=== PATIENT | female | born 1990 | race Caucasian/White ===

== ENCOUNTER 2020-10-23 13:05 | Emergency (ER) | payer OTHER ==
[2020-10-23] MEDS ORDERED: NA CHLORIDE 0.9% 1,000 ML ONE (15:14)
[2020-10-23 15:23] LABS: Basophils % 0.7 % (0-1.3); Hematocrit 42.7 % (36.0-45.0); Lymphocytes % 20.4 % (15.3-44.8); MPV 10.3 fL (7.6-11.3)
[2020-10-23 15:38] LABS: ALT/SGPT 19 U/L (12-78); AST/SGOT 10 U/L (15-37); Albumin 4.2 g/dL (3.4-5.0); Alkaline Phosphatase 48 U/L (45-117); BUN Blood Urea Nitrogen 10 mg/dL (7-18); Bicarbonate 27 mmol/L (21-32); Bilirubin Direct 0.2 mg/dL (0-0.2); Bilirubin Total 0.8 mg/dL (0.2-1.0); Glucose Level 91 mg/dL (74-106); Magnesium 2.2 mg/dL (1.8-2.4); Potassium 3.7 mmol/L (3.5-5.1); Protein, Total 7.5 g/dL (6.4-8.2); Sodium Level 141 mmol/L (136-145); Troponin (Emerg Dept Use Only) < 0.02 ng/mL (0.0-0.045)
--- NOTE | 2020-10-23 15:51 | ER ---
Nurse's Notes [facility] Name: Crista Sandra Age: 30 yrs Sex: Female : 1990 Arrival Date: 10/23/2020 Time: 13:10 Bed 15 Private MD: Diagnosis: Weakness;Syncope and collapse-Near Presentation: 10/23 13:40 Chief complaint: Patient states: I have anxiety. I started having chest pains last ca1 night, it usually happens after a busy shift. But it did not really subsided today, and now am having headaches, nausea, tingling on my arms and legs, feeling weak. Coronavirus screen: Client denies travel out of the [place] in the last 14 days. nausea, Client presents with at least one sign or symptom that may indicate coronavirus-19. Standard/surgical mask placed on the client. Provider contacted for isolation considerations. Ebola Screen: Patient negative for fever greater than or equal to 101.5 degrees Fahrenheit, and additional compatible Ebola Virus Disease symptoms Patient denies exposure to infectious person. Patient denies travel to an Ebola-affected area in the 21 days before illness onset. No symptoms or risks identified at this time. Initial Sepsis Screen: Does the patient meet any 2 criteria? No. Patient's initial sepsis screen is negative. Does the patient have a suspected source of infection? No. Patient's initial sepsis screen is negative. Risk Assessment: Do you want to hurt yourself or someone else? Patient reports no desire to harm self or others. Onset of symptoms was October 22, 2020. 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 - Social history:: Smoking status: Patient denies any tobacco usage or history of. - Family history:: not pertinent. Screenin:08 Abuse screen: Denies threats or abuse. Denies injuries from another. Nutritional zb screening: No deficits noted. Tuberculosis screening: No symptoms or risk factors identified. Fall Risk None identified. Assessment: 14:30 General: Appears in no apparent distress. uncomfortable, Behavior is calm, cooperative, zb appropriate for age, Reports feeling ill for 1-2 days, fatigue for 1-2 days. Pain: Complains of pain in chest Pain does not radiate. Pain currently is 5 out of 10 on a pain scale. Quality of pain is described as aching, Pain began 1 day ago. Is continuous. Neuro: Level of Consciousness is awake, alert, obeys commands, Oriented to person, place, time, situation. Neuro: Reports weakness since 1 days tingling of extremities . Cardiovascular: Heart tones S1 S2 present Capillary refill < 3 seconds in bilateral fingers Patient's skin is warm and dry. Pulses are all present. Rhythm is regular. Respiratory: Airway is patent Respiratory effort is even, unlabored, Respiratory pattern is regular, symmetrical. GI: Abdomen is flat. : No deficits noted. EENT: No deficits noted. Derm: Skin is intact, is healthy with good turgor, Skin is dry, Skin is normal. Musculoskeletal: Range of motion: intact in all extremities. 16:00 Reassessment: Patient is alert, oriented x 3, equal unlabored respirations, skin aa5 warm/dry/pink. Vital Signs: 13:40 BP 121 / 84; Pulse 84; Resp 16 S; Temp 97.7(TE); Pulse Ox 99% on R/A; Weight 65.77 kg ca1 (R); Height 5 ft. 4 in. (162.56 cm) (R); Pain 7/10; 14:00 BP 108 / 77; Pulse 66; Resp 16; Pulse Ox 100% on R/A; zb 15:00 BP 108 / 75; Pulse 72; Resp 16; Pulse Ox 100% on R/A; zb 13:40 Body Mass Index 24.89 (65.77 kg, 162.56 cm) ca1 ED Course: 13:10 Patient arrived in ED. as 13:42 Triage completed. ca1 13:44 Arm band placed on right wrist. ca1 13:53 Lazarus Hickey MD is Attending Physician. estelle 14:04 My Robbins RN is Primary Nurse. zb 15:08 Patient has correct armband on for positive identification. Placed in gown. Bed in low zb position. Call light in reach. Side rails up X 1. primary care provider on. Pulse ox on. NIBP on. Door closed. Noise minimized. Warm blanket given. 15:08 Inserted saline lock: 20 gauge in right antecubital area, using aseptic technique. zb Blood collected. Patient maintains SpO2 saturation greater than 95% on room air. 15:51 Karlos oWod MD is Referral Physician. [facility] 16:00 No provider procedures requiring assistance completed. IV discontinued, intact, aa5 bleeding controlled, No redness/swelling at site. Pressure dressing applied. 17:11 XRAY Chest (1 view) In Process Unspecified. EDMS Administered Medications: 15:03 Drug: NS 0.9% 1000 ml Route: IV; Rate: 1 bolus; Site: right antecubital; zb Outcome: 15:51 Discharge ordered by . [facility] 16:00 Discharged to home ambulatory. aa5 16:00 Condition: stable 16:00 Discharge instructions given to patient, Instructed on discharge instructions, follow up and referral plans. medication usage, Demonstrated understanding of instructions, follow-up care, medications, Prescriptions given X 1. 16:06 Patient left the ED. aa5 Signatures: Dispatcher [employer] EDMS Lazarus Hickey MD MD cha Martinez, Amelia as Calderon, Audri RN RN aa5 Evon Franco RN RN ca1 Brown, Zipporah, RN RN zb
--- NOTE | 2020-10-23 15:51 | EDPHYS ---
Physician Documentation [facility] Name: Crista Sandra Age: 30 yrs Sex: Female : 1990 Arrival Date: 10/23/2020 Time: 13:10 Bed 15 Private MD: ED Physician Lazarus Hickey HPI: 10/23 14:46 This 30 yrs old Female presents to ER via Ambulatory with complaints of Chest estelle Pain, Weakness, Fatigue. 14:46 The patient or guardian reports chest pain that is located primarily in the anterior estelle chest wall, bilaterally. The pain does not radiate. Associated signs and symptoms: The patient has no apparent associated signs or symptoms. The chest pain is described as aching. Duration: The patient or guardian reports multiple episodes, with no pattern. Modifying factors: The symptoms are alleviated by nothing. the symptoms are aggravated by nothing. Severity of pain: At its worst the pain was mild in the emergency department the pain is unchanged. The patient has not experienced similar symptoms in the past. PRESSER FIRST: 13:44 LMP 10/13/2020 ca1 Historical: - Allergies: 13:44 Latex, Natural Rubber; ca1 - Home Meds: 13:44 Albuterol Inhl [Active]; Clonazepam Oral [Active]; ca1 - PMHx: 13:44 Anxiety; Asthma; ca1 - PSHx: 13:44 Tonsillectomy; ca1 - Immunization history:: Flu vaccine is up to date. - Social history:: Smoking status: Patient denies any tobacco usage or history of. - Family history:: not pertinent. ROS: 14:46 Constitutional: Negative for fever, chills, and weight loss, Eyes: Negative for injury, estelle pain, redness, and discharge, ENT: Negative for injury, pain, and discharge, Neck: Negative for injury, pain, and swelling, Respiratory: Negative for shortness of breath, cough, wheezing, and pleuritic chest pain, Abdomen/GI: Negative for abdominal pain, nausea, vomiting, diarrhea, and constipation, Back: Negative for injury and pain, : Negative for injury, bleeding, discharge, and swelling, MS/Extremity: Negative for injury and deformity, Skin: Negative for injury, rash, and discoloration, Neuro: Negative for headache, weakness, numbness, tingling, and seizure, Psych: Negative for depression, anxiety, suicide ideation, homicidal ideation, and hallucinations, Allergy/Immunology: Negative for hives, rash, and allergies, Endocrine: Negative for neck swelling, polydipsia, polyuria, polyphagia, and marked weight changes, Hematologic/Lymphatic: Negative for swollen nodes, abnormal bleeding, and unusual bruising. 14:46 Cardiovascular: Positive for chest pain, of the chest. Exam: 14:46 Constitutional: This is a well developed, well nourished patient who is awake, alert, estelle and in no acute distress. Head/Face: Normocephalic, atraumatic. Eyes: Pupils equal round and reactive to light, extra-ocular motions intact. Lids and lashes normal. Conjunctiva and sclera are non-icteric and not injected. Cornea within normal limits. Periorbital areas with no swelling, redness, or edema. ENT: Nares patent. No nasal discharge, no septal abnormalities noted. Tympanic membranes are normal and external auditory canals are clear. Oropharynx with no redness, swelling, or masses, exudates, or evidence of obstruction, uvula midline. Mucous membranes moist. Neck: Trachea midline, no thyromegaly or masses palpated, and no cervical lymphadenopathy. Supple, full range of motion without nuchal rigidity, or vertebral point tenderness. No Meningismus. Chest/axilla: Normal chest wall appearance and motion. Nontender with no deformity. No lesions are appreciated. Cardiovascular: Regular rate and rhythm with a normal S1 and S2. No gallops, murmurs, or rubs. Normal PMI, no JVD. No pulse deficits. Respiratory: Lungs have equal breath sounds bilaterally, clear to auscultation and percussion. No rales, rhonchi or wheezes noted. No increased work of breathing, no retractions or nasal flaring. Abdomen/GI: Soft, non-tender, with normal bowel sounds. No distension or tympany. No guarding or rebound. No evidence of tenderness throughout. Back: No spinal tenderness. No costovertebral tenderness. Full range of motion. Skin: Warm, dry with normal turgor. Normal color with no rashes, no lesions, and no evidence of cellulitis. MS/ Extremity: Pulses equal, no cyanosis. Neurovascular intact. Full, normal range of motion. Neuro: Awake and alert, GCS 15, oriented to person, place, time, and situation. Cranial nerves II-XII grossly intact. Motor strength 5/5 in all extremities. Sensory grossly intact. Cerebellar exam normal. Normal gait. Psych: Awake, alert, with orientation to person, place and time. Behavior, mood, and affect are within normal limits. 14:46 Musculoskeletal/extremity: DVT Exam: No signs of deep vein thrombosis. no pain, no swelling, no tenderness, negative Homans' sign noted on exam, no appreciated bluish discoloration, no erythema, no increased warmth. 14:57 ECG was reviewed by the Attending Physician. estelle Vital Signs: 13:40 BP 121 / 84; Pulse 84; Resp 16 S; Temp 97.7(TE); Pulse Ox 99% on R/A; Weight 65.77 kg ca1 (R); Height 5 ft. 4 in. (162.56 cm) (R); Pain 7/10; 14:00 BP 108 / 77; Pulse 66; Resp 16; Pulse Ox 100% on R/A; zb 15:00 BP 108 / 75; Pulse 72; Resp 16; Pulse Ox 100% on R/A; zb 13:40 Body Mass Index 24.89 (65.77 kg, 162.56 cm) ca1 MDM: 13:53 Patient medically screened. estelle 14:49 Differential diagnosis: abnormal EKG, acute pericarditis, coronary artery disease chest estelle wall pain, cholecystitis, Cholelithiasis hiatal hernia, peptic ulcer disease, pericarditis, pneumonia, stable angina, unstable angina. HEART Score: History: Slightly Suspicious (0), ECG: Normal (0), Age: < or = 45 years (0), Risk Factors: No Risk Factors Known (0), Troponin: < or = 1 x Normal Limit (0), Total Score = 0. The patient's deep vein thrombosis risk score was calculated as follows: Total Score: 0. This patient was found to be at low risk for a deep vein thrombosis by using the Well's assessment criteria. The patient's pulmonary embolism risk score was calculated as follows: Total Score: 0-2 points. This patient was found to be at low risk for a pulmonary embolism by using the Well's assessment criteria. MICHELE Risk Score: not applicable. Data reviewed: vital signs, nurses notes, lab test result(s), EKG, radiologic studies, plain films. 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 Test interpretation: by ED physician or midlevel provider: ECG, plain radiologic studies. Counseling: I had a detailed discussion with the patient and/or guardian regarding: the historical points, exam findings, and any diagnostic results supporting the discharge/admit diagnosis, the presence of at least one elevated blood pressure reading (>120/80) during this emergency department visit, lab results, radiology results, the need for outpatient follow up, for definitive care, a youth minister, a family practitioner. 10/23 14:45 Order name: Basic Metabolic Panel [facility] 10/23 14:45 Order name: CBC with Diff; Complete Time: 15:49 [facility] 10/23 14:45 Order name: LFT's; Complete Time: 15:49 [facility] 10/23 14:45 Order name: Magnesium; Complete Time: 15:49 [facility] 10/23 14:45 Order name: Troponin (emerg Dept Use Only); Complete Time: 15:49 [facility] 10/23 14:46 Order name: Basic Metabolic Panel; Complete Time: 15:49 [facility] 10/23 14:45 Order name: XRAY Chest (1 view) [facility] 10/23 14:45 Order name: EKG; Complete Time: 14:46 [facility] 10/23 14:45 Order name: Cardiac monitoring; Complete Time: 14:52 [facility] 10/23 14:45 Order name: EKG - Nurse/Tech; Complete Time: 14:47 [facility] 10/23 14:45 Order name: IV Saline Lock; Complete Time: 15:04 [facility] 10/23 15:23 Order name: Urine Dipstick--Ancillary (enter results) 10/23 15:23 Order name: Urine --Ancillary (enter results) 10/23 14:45 Order name: Labs collected and sent; Complete Time: 15:04 [facility] 10/23 14:45 Order name: O2 Per Protocol; Complete Time: 14:51 [facility] 10/23 14:45 Order name: O2 Sat Monitoring; Complete Time: 14:51 [facility] 10/23 14:45 Order name: Urine Dipstick-Ancillary (obtain specimen); Complete Time: 15:27 [facility] 10/23 14:45 Order name: Urine Test (obtain specimen); Complete Time: 15:26 [facility] EC:57 Rate is 71 beats/min. Rhythm is regular. QRS [place] is Normal. [place] interval is normal. QRS estelle interval is normal. QT interval is normal. No Q waves. T waves are Normal. No ST changes noted. Clinical impression: Normal ECG and No evidence of ischemia. Interpreted by me. Reviewed by me. Administered Medications: 15:03 Drug: NS 0.9% 1000 ml Route: IV; Rate: 1 bolus; Site: right antecubital; zb Disposition: 10/23/20 15:51 Discharged to Home. Impression: Weakness, Syncope and collapse - Near. - Condition is Stable. - Discharge Instructions: Near-Syncope, Syncope, Weakness, Fatigue, Near-Syncope, [id number], Syncope, Avys-rc-[id number], Weakness, [id number]. - Prescriptions for Vitamin 27- 0.8 mg Oral Tablet - take 1 tablet by ORAL route once daily; 30 tablet. - Work release form, Medication Reconciliation Form, Thank You Letter, Antibiotic Education, Prescription Opioid Use form. - Follow up: Private Physician; When: 2 - 3 days; Reason: Recheck today's complaints, Continuance of care, Re-evaluation by your physician. Follow up: Karlos Wood; When: 2 - 3 days; Reason: Recheck today's complaints, Re-evaluation by your physician. - Problem is new. - Symptoms have improved. Signatures: Dispatcher [employer] EDLazarus Cooley MD MD cha Calderon, Audri RN RN aa5 Evon Franco RN RN ca1 Brown, Zipporah, RN RN zb Corrections: (The following items were deleted from the chart) 16:06 15:51 10/23/2020 15:51 Discharged to Home. Impression: Weakness; Syncope and collapse - aa5 Near. Condition is Stable. Discharge Instructions: Near-Syncope, Syncope, Weakness, Fatigue, Near-Syncope, [id number], Syncope, [id number]-Sild, Weakness, [id number]. Prescriptions for Vitamin 27-0.8 mg Oral Tablet - take 1 tablet by ORAL route once daily; 30 tablet. and Forms are Medication Reconciliation Form, Thank You Letter, Antibiotic Education, Prescription Opioid Use. Follow up: Private Physician; When: 2 - 3 days; Reason: Recheck today's complaints, Continuance of care, Re-evaluation by your physician. Follow up: Karlos Wood; When: 2 - 3 days; Reason: Recheck today's complaints, Re-evaluation by your physician. Problem is new. Symptoms have improved. estelle
[2020-10-23 16:13] VITALS: TEMP 97.7
[2020-10-23 16:15] VITALS: O2SAT 100
[2020-10-23 16:16] VITALS: BP 108/75
--- NOTE | 2020-10-23 17:22 | RAD REPORT ---
EXAM DESCRIPTION: RAD - Chest Single View - 10/23/2020 5:11 pm CLINICAL HISTORY: COUGH Chest pain. COMPARISON: No comparisons FINDINGS: Portable technique limits examination quality. The lungs are grossly clear. The heart is normal in size. No displaced fractures. IMPRESSION: No acute intrathoracic process suspected.
[2020-10-23 20:08] LABS: Urine Blood NEGATIVE (NEG); Urine Glucose NEGATIVE (NEG); Urine Protein NEGATIVE (NEG)
== END 2020-10-23 16:06 | disposition home or self-care (01) ==
LOC: ER 13:05
DX: R53.1 Weakness (principal); R55 Syncope and collapse; F41.9 Anxiety disorder, unspecified; Z91.040 Latex allergy status; Z91.048 Other nonmedicinal substance allergy status
CPT/HCPCS: 93005; 85025; 80048; 36415; 83735; 81025; 80076; 81003; 84484; 71045; 99285; J7030